=== PATIENT | male | born 1995 | race Caucasian/White ===

== ENCOUNTER → 2018-11-11 | Outpatient (CLI) | payer BC | END | disposition home or self-care (01) | LOC: LAB SHORT 11:58 → LAB 11:58 | DX: L08.0 Pyoderma (principal) | CPT/HCPCS: 87070; 87077; 87147; 87186; 87205 ==

== ENCOUNTER 2021-02-13 21:37 | Emergency (ER) | payer BC ==
[~2021-02-13] VITALS: Ht 175.3 cm; Wt 86.2 kg
[2021-02-13] MEDS ORDERED: QVAR REDIHALE10.6 G2 IH (22:32)
[2021-02-14] MEDS ORDERED: Norco 5-325 Ta1 EACH PO (00:30)
[2021-02-14] MEDS ORDERED: ONDA4 PO (00:30)
== END 2021-02-14 02:03 | disposition home or self-care (01) ==
LOC: ER 21:37
DX: S52.042A Displaced fracture of coronoid process of left ulna, initial encounter for closed fracture (principal); S52.132A Displaced fracture of neck of left radius, initial encounter for closed fracture; S53.125A Posterior dislocation of left ulnohumeral joint, initial encounter; J45.909 Unspecified asthma, uncomplicated; Z91.010 Allergy to peanuts; Z79.899 Other long term (current) drug therapy; V00.841A Fall from standing electric scooter, initial encounter
CPT/HCPCS: 24655; 73080; 73090; 73200; 73564; 96374-59; 96375-59; 99152; 99284-25; A9270; J2270; J2405; J2704; J7030